=== PATIENT | male | born 1935 | race African-American/Black ===

== ENCOUNTER 2017-10-05 08:55 | Outpatient (CLI) | payer OTHER | END 2017-10-05 19:53 | disposition home or self-care (01) | LOC: SCT 08:55 | PROVIDERS: ATTEND Internal Medicine Pulmonary Disease | PROC: BB27ZZZ Computerized Tomography (CT Scan) of Right Tracheobronchial Tree (ICD-10-PCS; principal; 2017-10-05) | PROC: 0BDK4ZX Extraction of Right Lung, Percutaneous Endoscopic Approach, Diagnostic (ICD-10-PCS; 2017-10-05) | DX: J18.9 Pneumonia, unspecified organism (principal); R91.8 Other nonspecific abnormal finding of lung field; Z86.11 Personal history of tuberculosis | CPT/HCPCS: 77012; 88305 ==